=== PATIENT | female | born 2000 | race African-American/Black ===

== ENCOUNTER 2023-06-29 15:38 | Emergency (ER) | payer MEDICAID, OTHER ==
[~2023-06-29] VITALS: Ht 175.3 cm; Wt 90.0 kg
[2023-06-29 15:51] VITALS: BP 135/88; PULSE 85; RESP 20; TEMP 98.3; O2SAT 99
[2023-06-29] MEDS ORDERED: LIDOCAINE HCL/PF 1% 10 MG/ML 5ML VIAL INFIL ONE (17:00)
== END 2023-06-29 18:07 | disposition home or self-care (01) ==
LOC: ER 16:05
DX: S61.112A Laceration without foreign body of left thumb with damage to nail, initial encounter (principal); Z98.890 Other specified postprocedural states; X58.XXXA Exposure to other specified factors, initial encounter; Y93.89 Activity, other specified; Y92.89 Other specified places as the place of occurrence of the external cause; Y99.8 Other external cause status
CPT/HCPCS: 12001; 99282; Z7610